=== PATIENT | female | born 1985 | race Caucasian/White ===

== ENCOUNTER 2025-05-25 01:55 | Emergency (ER) | payer OTHER, SELFPAY ==
--- NOTE | ~2025-05-25 | CT_ITS ---
CLINICAL HISTORY: LUQ pain CT abdomen and pelvis without contrast Comparison: None provided Findings: The lung bases are clear. Abdominal solid organs without acute abnormality. However, there is borderline hepatosplenomegaly. Gallbladder nondistended. Adrenal glands are nonenlarged The stomach and bowel loops are nondilated. However, there is thickening of the wall of the body of the stomach, axial image 26, series 2, coronal image 26. There are no focal colonic lesions or pneumatosis. There is no pericolonic inflammation. Moderate amount of stool in the colon. There is a low-lying cecum in the right hemipelvis. Appendix is normal. No free fluid, collections or free air The aorta normal in caliber. No abdominopelvic lymphadenopathy. The bladder is normal. Uterus unremarkable. There are no adnexal lesions. No acute soft tissue or skeletal abnormality in the abdomen or pelvis. Partially seen intact bilateral breast implants. IMPRESSION: Wall thickening involving the body of the stomach, nonspecific, may be related to underdistention versus gastric pathology. Recommend GI consultation. The examination is otherwise unremarkable within limitation of a noncontrast exam. This document has been electronically signed by: Josué Schroeder MD on 05/25/2025 05:30:20
--- NOTE | ~2025-05-25 | XR_ITS ---
CLINICAL HISTORY: L chest pain 1 view chest x-ray Comparison: None provided Findings: No consolidation or effusion. Normal size heart. No acute fracture. IMPRESSION: 1. No acute findings. This document has been electronically signed by: Josué Schroeder MD on 05/25/2025 03:50:35
--- NOTE | 2025-05-25 01:56 | ECG_ITS ---
Test Reason : CHEST PAIN Blood Pressure : */* mmHG Vent. Rate : 90 BPM Atrial Rate : 90 BPM P-R Int : 132 ms QRS Dur : 72 ms QT Int : 364 ms P-R-T Axes : 76 70 56 degrees QTcB Int : 445 ms Normal sinus rhythm Nonspecific ST and T wave abnormality Abnormal ECG When compared with ECG of 24-Feb-2011 23:25, Vent. rate has increased by 37 bpm T wave amplitude has decreased in Lateral leads Referred By: Generic ED Physician Electronically Signed By: RUBY ABDALLA
[2025-05-25 02:03] VITALS: BP 140/85; PULSE 77; RESP 16; TEMP 37.1; O2SAT 100; BMI 19.8
[2025-05-25 02:23] LABS: MANUAL DIFF FLAG NO
[2025-05-25 02:24] LABS: Hematocrit 40.1 % (37.0-47.0); Hemoglobin 13.2 g/dl (12.0-16.0); Imm Gran Abs Auto 0.01 X10*3/uL (0.00-0.03); Imm Gran Pct Auto 0.1 % (0.0-0.4); Lymphocytes Absolute Auto 2.7 X10*3/uL (1.2-4.9); Mean Corpuscular HGB Conc 32.9 g/dl (31.0-35.0); Mean Corpuscular Hemoglobin 29.7 pg (27.0-33.0); Mean Corpuscular Volume 90.3 fL (80.0-98.0); NRBC Abs Auto 0.000 X10*3/uL (0.0-0.012); NRBC Pct Auto 0.0 /100WBC (0.0-0.2); Platelet Count 330 X10*3/uL (160-400); Red Blood Count 4.44 X10*6/uL (4.20-5.50); White Blood Count 6.9 X10*3/uL (4.8-10.8)
[2025-05-25 02:41] LABS: COVID-19 Test Negative (Negative); IDNOW Serial# 55D5AD1C; IDNOW Serial# 58CA691E; Influenza B2 Negative (Negative)
[2025-05-25 02:46] LABS: Alanine Aminotransferase 7 U/L (0-31); Albumin Level 4.1 g/dL (3.5-5.0); Alkaline Phosphatase 62 U/L (39-117); Anion Gap 14 (12-20); Aspartate Amino Transferase 18 U/L (5-31); Blood Urea Nitrogen 11 mg/dL (9-16); Calcium 8.7 mg/dL (8.4-10.2); Carbon Dioxide 21 mmol/L (22-29); Chloride 110 mmol/L (96-108); Creatinine Clr Calc Pharmacy 89.4; Estimated Glomerular Filt Rate > 60; Magnesium 2.0 mg/dL (1.6-2.6); Potassium 3.5 mmol/L (3.3-5.1); Sodium 141 mmol/L (135-145); Total Protein 6.6 g/dL (6.5-8.0)
--- NOTE | 2025-05-25 02:49 | ED_ITS ---
HPI - Chest Pain General Chief Complaint: Chest Pain Stated Complaint: CP Time Seen by Provider: 05/25/25 02:15 Source: patient Mode of arrival: ambulatory Limitations: no limitations History of Present Illness ED Provider: Dr. Evita Talbert HPI narrative: Patient comes to the emergency room complaining of intermittent sharp left-sided chest pain. Patient states that she believes it is radiating from the stomach upwards. However, patient states it feels like a crushing pain intermittently. Patient states that since she got here, she no longer has a abdominal pain or chest pain shortness of breath. Patient states that she feels a bit anxious, denies nausea vomiting diarrhea. Patient denies any recent travel or smoking, patient does take control pills. Related Data Previous Rx's ?Medication ?Instructions ?Recorded famotidine 20 mg tablet (Heartburn 20 mg PO DAILY #30 tabs 05/25/25 Relief (famotidine)) Allergies Allergy/AdvReac Type Severity Reaction Status Date / Time amoxicillin (Amoxicillin) Allergy Unknown UNKNOWN Verified 05/25/25 02:07 Penicillins Allergy Unknown RASH Verified 05/25/25 02:07 Review of Systems 2 Review of Systems: Constitutional : No Weight loss, No Fever, No Chills, No Night Sweats, No Fatigue, No Malaise ENT/Mouth : No Hearing loss, No Ear Pain, No Nasal Congestion, No Sinus Pain, No Hoarseness, No sore throat, No Rhinorrhea, No Swallowing Difficulty Eyes: No Eye Pain, No Swelling, No Redness, No Foreign Body, No Discharge, No Vision Changes Cardiovascular : Complaining of crushing Chest Pain intermittently, radiating from the abdomen upwards., No SOB, No Dyspnea on Exertion, No Orthopnea, No Edema, No Palpitations Respiratory : No Cough, No Sputum, No Wheezing, No Smoke Exposure, No Dyspnea Gastrointestinal : No Nausea, No Vomiting, No Diarrhea, No Constipation, No abdominal Pain, No Hematochezia, No Melena Genitourinary : no irregular bleeding, No Dysuria, No Urinary Frequency, No Hematuria, No Urinary Incontinence, No Urgency, No Flank Pain, No Urinary Flow Changes, No Hesitancy Musculoskeletal : No joint pain, No Myalgias, No Joint Swelling Skin : No Skin Lesions, No rash Neuro : No Weakness, No Numbness, No Paresthesias, No Loss of Consciousness, No Dizziness, No Headache Psych : No Anxiety/Panic, No Depression, No SI/HI/AH/VH, No Social Issues, Heme/Lymph: No Bruising, No Bleeding,No Lymphadenopathy Endocrine : No Polyuria, No Polydipsia, No Temperature Intolerance [facility] Social History Social History Alcohol intake: never Smoked in Last 30 Days: No Use of substances other than those prescribed or required for medical reasons: No Advance Directives: No Advance Directives Information Provided: Yes Do you have a plan to hurt others: No Plan Patient : No Physical Exam 2 Exam: Exam: Appearance: Alert. Oriented X3. No acute distress. Eyes: Pupils equal, round and reactive to light. ENT: Pharynx normal. Neck: Normal inspection. Neck supple. No lymph nodes noted. No crepitus CVS: Normal heart rate and rhythm. Pulses normal. Normal S1 and S2 Respiratory: No respiratory distress. Breath sounds normal. No Wheezing. No rales Abdomen: Soft and nontender. No rigidity. No distention. Skin: Skin warm and dry. Normal skin color. Normal skin turgor. Extremities: No lower extremity edema. No Lacerations. No Rash Neuro: Oriented X 3. No motor deficit. No sensory deficit. Moving all extremities. No slurred speech. CN 2 through 12 grossly intact Psych: calm, cooperative, seems a bit anxious Vital Signs: Vital Signs: Last Vital Signs Temp 98.8 F 05/25/25 02:03 Pulse 77 05/25/25 02:03 Resp 16 05/25/25 02:03 BP 140/85 H 05/25/25 02:03 Pulse Ox 100 05/25/25 02:03 O2 Del Method Room Air 05/25/25 02:03 BMI result Body Mass Index 19.8 Course Course Course Narrative: I patient's triage informed me that the patient arrived crying, anxious, stating that she has left-sided chest pain Medications Administered Discontinued Medications Generic Name Dose Route Start Last Admin Trade Name Freq PRN Reason Stop Dose Admin Famotidine 20 mg 05/25/25 04:19 05/25/25 05:22 Famotidine 20 Mg Tablet PO 05/25/25 04:20 20 mg ONCE ONE Administration No significant abnormality in patient's hematology and chemistry, troponin negative. D-dimer is slightly elevated. Given patient's location of pain, symptoms and elevated D-dimer, we will proceed with a CTA to rule out PE. Medical Decision Making Medical Decision Making [facility] Narrative: My interpretation of EKG: Normal sinus rhythm, heart rate 90, no ST segment depression or elevation, no T-wave inversion, QTC 445 My interpretation of labs: No significant abnormality in patient's hematology or chemistry, D-dimer negative Patient very anxious, tearful , patient reassured multiple times. Patient instructed to follow-up with her primary care physician. Wells criteria score is negative for PE It was discussed with the patient that if she continues having symptoms, she may benefit from a Holter monitor evaluation. Once patient was getting ready to be discharged, patient states that she is mostly having abdominal pain in the left upper quadrant that radiates up to her chest. Patient extremely anxious, tearful Patient requesting that we do an ultrasound of her stomach. I discussed with the patient that an ultrasound of the stomach is not a thing. I discussed with the patient that pain radiating from the left upper quadrant towards the chest might be gastritis/GERD, peptic ulcer disease. The patient was made aware that even with the imaging, whether it is ultrasound or CAT scan, we can not see this conditions. Empiric treatment is indicated and then follow- up with PCP for possible referral to Gastroenterology. If there is no improvement, patient may need an endoscopy. She now more anxious A CT scan has been ordered. And patient was offered a GI cocktail including viscous lidocaine, Maalox and Pepcid. I was offered by the patient's nurse that the patient declined the above- mentioned treatment because it is bad for her teeth . CT scan of the abdomen shows nonspecific wall thickening of the body. I discussed the above-mentioned with the patient, recommended treatment for a least couple of months. If there is no improvement, patient may need the upper endoscopy. Patient understands that she needs to have follow-up with gastroenterology. Patient agrees with plan Patient is less anxious, no longer tearful Differential Diagnosis Differential Diagnoses: The differential diagnosis associated with the presentation includes (Pulmonary embolism, viral illness, gastritis, costochondritis, pleurisy) Admission/Observation Consideration of admission/observation: Escalation of care including admission/observation considered (Given patient's age and symptoms, observation was considered) Lab Data MDM Lab Attestation statement: I reviewed the patient's lab results. 05/25/25 02:16 05/25/25 02:16 Labs: Lab Results 05/25/25 05/25/25 Range/Units 02:16 03:07 WBC 6.9 (4.8-10.8) X10*3/uL RBC 4.44 (4.20-5.50) X10*6/uL Hgb 13.2 (12.0-16.0) g/dl Hct 40.1 (37.0-47.0) % MCV 90.3 (80.0-98.0) fL MCH 29.7 (27.0-33.0) pg MCHC 32.9 (31.0-35.0) g/dl RDW 12.9 (11.0-16.0) % Plt Count 330 (160-400) X10*3/uL MPV 9.3 L (9.4-12.3) fL Immature Gran % (Auto) 0.1 (0.0-0.4) % Neut % (Auto) 45.9 (45-73) % Lymph % (Auto) 39.2 (20-40) % Phillips % (Auto) 11.5 H (2-11) % Eos % (Auto) 2.7 (0-4) % Baso % (Auto) 0.6 (0-2) % Lymph # (Auto) 2.7 (1.2-4.9) X10*3/uL Phillips # (Auto) 0.8 (0.1-1.2) X10*3/uL Eos # (Auto) 0.2 (0.0-0.4) X10*3/uL Baso # (Auto) 0.0 (0.0-0.2) X10*3/uL Abs Immat Gran (auto) 0.01 (0.00-0.03) X10*3/uL Absolute Neuts (auto) 3.2 (2.0-8.3) x10*3/uL Absolute Nucleated RBC 0.000 (0.0-0.012) X10*3/uL Nucleated RBC % (auto) 0.0 (0.0-0.2) /100WBC D-Dimer High Sensitivty 154 NG/ML Sodium 141 (135-145) mmol/L Potassium 3.5 (3.3-5.1) mmol/L Chloride 110 H (96-108) mmol/L Carbon Dioxide 21 L (22-29) mmol/L Anion Gap 14 (12-20) BUN 11 (9-16) mg/dL Creatinine 0.75 (0.5-1.4) mg/dL Estim Creat Clear Calc 89.4 Estimated GFR > 60 Random Glucose 94 (60-115) mg/dL Calcium 8.7 (8.4-10.2) mg/dL Magnesium 2.0 (1.6-2.6) mg/dL Total Bilirubin 0.4 (0.0-1.0) mg/dL AST 18 (5-31) U/L ALT 7 (0-31) U/L Alkaline Phosphatase 62 (39-117) U/L Troponin I High Sens < 2.7 (<3.5-17.0) ng/L Total Protein 6.6 (6.5-8.0) g/dL Albumin 4.1 (3.5-5.0) g/dL Beta HCG, Quant < 2 mIU/mL COVID-19 (AUREA) Negative (Negative) COVID-19 Clin Com See Note Influenza Type A (AMANDA) Negative (Negative) Influenza Type B (AMANDA) Negative (Negative) Influenza A & B Note See Note Independent Interpretation I performed an independent interpretation of an: CT Scan Radiology Impression Discussion of test interpretation with radiology: I have reviewed the radiologist's reading. Radiologist Impression: No consolidation or effusion. Normal size heart. No acute fracture. IMPRESSION: 1. No acute findings. Wall thickening involving the body of the stomach, nonspecific, may be related to underdistention versus gastric pathology. Recommend GI consultation. The examination is otherwise unremarkable within limitation of a noncontrast exam. Scores Heart Score History: -0- slightly suspicious ECG: -0- normal Age: -0- < or = 45 Risk factory: -0- no risk factors known Troponin: -0- < or = normal limit Score: 0 Risk: 1.7% Critical Care Time Critical Care Time Critical Care Time: Yes Total Critical Care Time: 35 Attestation: I have personally provided critical care time. Time includes review of lab data, radiology results, discussion with consultants, and monitoring for potential decompensation. Intervention performed as documented. Discharge Plan Discharge Clinical Impression: Atypical chest pain, Gastritis Patient Disposition: Home, Self-Care Instructions: Chest Pain (ED), Gastritis (ED), Diet for Stomach Ulcers and Gastritis (ED) Additional Instructions: Please follow-up with your primary care physician tomorrow. If you have any worsening or new symptoms, please return to the emergency room or call 911 Prescriptions: New famotidine [Heartburn Relief (famotidine)] 20 mg tablet 20 mg PO DAILY Qty: 30 2RF Print Language: Telugu
[2025-05-25 02:50] LABS: Troponin-I High Sensitivity < 2.7 ng/L (<3.5-17.0)
[2025-05-25 03:12] VITALS: PULSE 67
--- OUTSIDE RECORDS SUMMARY | 2025-05-25 03:13 | XMS_ITS | Encounter Summary ---
Author Organization [facility] Address [address] [place] [address] Care Team Providers Care Director Of Dementia Operations Name Role Phone Ilan Agarwal MD Primary Care Provider [phone] Encounter Details Date Type Department Care Team ([facility] st Contact Info) Description 05/01/2025 Results Follow-Up Endocrinology - [address] [id number] Justin Roman MD [address] [place] [address] Social History Tobacco Use Types Packs/Day Years Used Date Smoking Tobacco: Former Cigarettes Q uit: 07/26/2009 Smokeless Tobacco: Never Alcohol Use Standard Drinks/Week Comments Yes 0 (1 standard drink = 0.6 oz pur e alcohol) Housing Instability Answer Date Recorde d Are you worried that in the next 2 months you may not have stable housing? No 06/19/2024 Food Access & Nutrition Answer Date Rec orded Do you have access to a vari ety of food including fruits and vegetables? Yes 06/19/2024 Access to Healthcare Answer Date Record ed Within the last 3 months, ho w many times did you visit the emergency department for your medical care? 0 06/19/2024 Health Literacy Answer Date Recorded How often do you need to hav e someone help you when you read instructions, pamphlets, or other written material from your doctor or pharmacy? Never 06/19/2024 Caregiver: How often do you need to have someone help you when you read instructions, pamphlets, or other written material from your doctor or pharmacy? Not on file 06/19/2024 Financial Risk Answer Date Recorded How hard is it for you to pa y for the very basics like food, housing, medical care, and air conditioning / heating? Not very hard 06/19/2024 Transportation Answer Date Recorded Has the lack of transportati on kept you from meetings, work, or from getting things needed for daily living? No Has the lack of transportati on kept you from medical appointments or from getting medications? No 06/19/2024 Social Isolation Answer Date Recorded How often do you feel lonely or isolated from th ose around you? Never 06/19/2024 Food Risk Answer Date Recorded Within the past 12 months we worried whether our food would run out before we got money to buy more. Never true 06/19/2024 Within the past 12 months th e food we bought just didn't last and we didn't have money to get more. Never true 06/19/2024 Dependent Care Answer Date Recorded Do you need help finding or paying for care for your loved ones. For example, children's choir director or elderly care for an older adult? No 06/19/2024 Education Answer Date Recorded Do you think completing more education or training, like finishing a GED, going to college, or learning a trade, would be helpful for you? No 06/19/2024 Employment and Income Answer Date Recor ded During the last four weeks, have you been actively looking for work? No 06/19/2024 Living Situation Answer Date Recorded What is your living situation? Unrecognized valu e 06/19/2024 Comments No Sex and Gender Information Value Date Recorded Sex Assigned at Not on file Legal Sex Female 9:48 PM EST Gender Identity Not on file Sexual Orientation Not on file documented as of this encounter Plan of Treatment Upcoming Encounters Date Type Department Care Team (Late st Contact Info) Description 08/02/2025 10:00 AM EST Office Visit Adult Medicine [address] [phone] Ilan Agarwal MD [address] [place] [address] 10/11/2025 1:45 PM EDT Appointment Radiology Department - [address] [phone] documented as of this encounter Visit Diagnoses Not on filedocumented in this encounter Additional Health Concerns Assessment Noted Time PHQ-9 Depression Total Score: 0 03/28/20 8:36 PM EDT documented as of this encounter Care Teams Director Of Dementia Operations Relationship Specialty Start Date End Date Ilan Agarwal MD [address] [place] [address] PCP - General Internal Medicine 02/01/25 documented as of this encounter
--- OUTSIDE RECORDS SUMMARY | 2025-05-25 03:13 | XMS_ITS | Clinical Summary ---
Author Organization [facility] [address] [place] [address] [place] [phone] Phone Care Team Providers Care Workforce Management Consultant Name Role Phone Ilan Agarwal MD Primary Care Provider Allergies Active Allergy Reactions Criticality Noted Date Comments Penicillins Rash,Wheezing 01/08/2010 Medications cyanocobalamin (VITAMIN B-12) 1,000 mcg tablet Take 1 tablet (1,000 mcg total) by mouth 1 (one) time each day. 11/29/2023 Active norethindrone-e thinyl estradiol (JUNEL 08/14) 1 mg-20 mcg (21)/75 mg (7) per tablet Take 1 tablet by mouth 1 (one) time each day. Take active pills only for 3 months-skip placebos for 2 packs. Then repeat 28 tablet 14 04/20/2025 04/19/20 26 Active Active Problems Problem Noted Date Diagnosed Date Palpitation 01/09/2025 Right ovarian cyst 10/27/2019 Overview (06/20/2024): Small complex, Probably hemorrhagic. Measuring 2.2 x 1.2 x 1.8 Will repeat US in 6 weeks. Results: Date: Cervical lymphadenopathy 12/07/2018 Hoarseness 11/30/2018 Bleeding external hemorrhoids 10/24/2012 IBS (irritable bowel syndrome) 04/13/2011 Anxiety 03/31/2011 Chest pain 10/29/2010 Assessment & Plan (01/10/2025 10:09 AM EDT): 2 out of 5 risk factors for coronary disease is scheduled for stress echo also for the palpitations. Pain is more typical for GI but given a female and atypical symptoms we need to ensure that there is no ischemic disease Orders: Stress echocardiogram (TTE) exercise with PRN contrast, bubble, strain, and 3D order panel; Future Cardiac holter monitor (<= 48 hours); Future Encounters Date Type Department Care Team Description 05/01/2025 Results Follow-Up Endocrinology - [address] [phone] Justin Roman MD 04/19/2025 12:30 PM EDT - 04/19/2025 11:59 PM EDT Hospital Encounter Radiology Department - [address] [phone] Thyroid nodule Discharge Disposition: Home or Self Care 04/05/2025 12:25 PM EDT - 04/05/2025 11:59 PM EDT Hospital Encounter Radiology Department - [address] [phone] Abnormal mammogram Discharge Disposition: Home or Self Care 04/02/2025 4:00 PM EDT Office Visit Obstetrics and Gynecology - [address] [phone] Mary Kate Chapman, SETH Cyst of right breast (Primary Dx) from Last 3 Months Immunizations Immunization Administration Dates Next Due PPD Test 09/25/2015,09/20/2014,03/27/2011 Tdap Tetanus diptheria acell ular pertussis (Boostrix; Adacel) 7yo and older 09/20/2014 Surgical History Surgery Date Site/Laterality Comments FLEXIBLE SIGMOIDOSCOPY 03/2011 PROCEDURE: AL SIGMOIDOSCOPY FLX DX W/COLLJ SPEC BR/WA IF PFRMD OTHER SURGICAL HISTORY PROCEDURE: HISTORICAL UNSPECIFIED SURGERY; COMMENT: mammoplasty OTHER SURGICAL HISTORY Bilateral PROCEDURE: IMPLANT BREAST SILICONE/EQ; COMMENT: 2012 Medical History Medical History Date Comments Chest pain DX:Chest pain Troy's thyroiditis DX:Rosy gonzalo's thyroiditis B12 deficiency DX:B12 deficienc y Family History Medical History Relation Name Comments Hyperlipidemia Father Breast cancer Father's side paternal gr g rmtr at age 20's Coronary artery disease Paternal Grandfather Colon cancer Neg Hx Diabetes Neg Hx Ovarian cancer Neg Hx Pancreatic cancer Neg Hx Prostate cancer Neg Hx Uterine cancer Neg Hx Relation Name Status Comments Father Alive Hyperchol, hype rtension, cad Father's side Mother Alive Paternal Grandfather SC @ 40 yrs, CAD Social History Tobacco Use Types Packs/Day Years Used Date Smoking Tobacco: Former Cigarettes Q uit: 07/26/2009 Smokeless Tobacco: Never Tobacco Cessation:Counseling Given: Not Answered Alcohol Use Standard Drinks/Week Comments Yes 0 [...] ed Within the last 3 months, ho rey many times did you visit the emergency [...] care for your loved ones. For example, early childhood director or elderly care for an older [...] on file Sexual Orientation Not on file Obstetrics History Para Term AB IAB SAB Ectopic Multiple Livin g Live Births 2 2 2 2 2 Date Outcome GA Total Labor Labor/2nd/3rd Weight Sex Type Anes PTL Laura A1 A5 Name Clin 005 Term M Vag-S pont Living 012 Term M Vag-S pont Living Comments:System Genera hillary. Please review and update details. Last Filed Vital Signs Vital Sign Reading Time Taken Comments Blood Pressure 127/83 04/02/2025 3:56 PM EDT Pulse 91 04/02/2025 3:56 PM EDT Temperature 35.7 C (96.3 F) 12/04/2024 4:41 PM EDT Respiratory Rate 15 02/13/2025 3:37 PM EDT Oxygen Saturation 99% 01/10/2025 9:04 AM EDT Inhaled Oxygen Concentration - - Weight 56.7 kg (125 lb) 04/02/2025 3:56 PM EDT Height 167.6 cm (5' 6 ) 02/01/2025 9:22 AM EDT Body Mass Index 20.18 02/01/2025 9:22 AM EDT Plan of Treatment Upcoming Encounters Date Type Department Care Team (Late st Contact Info) Description 08/02/2025 10:00 AM EST Office Visit Adult Medicine [address] [phone] Ilan Agarwal MD [address] [place] [address] 10/11/2025 1:45 PM EDT Appointment Radiology Department - [address] [phone] Health Maintenance Due Date Last Done Comments Hepatitis B Vaccines (1 of 3 - 19+ 3-dose series) 2005 HPV Vaccines (1 - 3-dose SCDM series) 2013 DTaP,Tdap,and Td Vaccines (2 - Td or Tdap) 09/20/2024 09/20/2014 COVID-19 Vaccine ( - season) 2025 Influenza Vaccine (#1) 2025 Social Influencers of Health Screening 06/19/2025 06/19/2024 Cervical Cancer Screening: HPV 04/07/2029 04/07/2024 Cholesterol Screening (Lipid Panel) 09/27/2029 09/27/2024, 03/08/2024, 03/08/2024, Additional history exists RSV Immunization Adult Patients (1 - 1-dose 75+ series) 2061 HIV Screening Completed 04/07/2023 Hepatitis C Screening Completed 04/07/2023 Depression Screening Completed 03/28/2025 HIB Vaccines Aged Out No longer eligi ble based on patient's age to complete this topic Hepatitis A Vaccines Aged Out No long er eligible based on patient's age to complete this topic IPV Vaccines Aged Out No longer eligi ble based on patient's age to complete this topic MMR Vaccines Aged Out No longer eligi ble based on patient's age to complete this topic Meningococcal ACWY Vaccine Aged Out N o longer eligible based on patient's age to complete this topic Meningococcal B Vaccine Aged Out No l onger eligible based on patient's age to complete this topic Pneumococcal Vaccine: Pediatrics (0 to 5 Years) and At-Risk Patients (6 to 49 Years) Aged Out No longer eligible based on patient's age to complete this topic RSV Immunization Patients Under 20 months Aged Out No longer eligible based on patient's age to complete this topic Varicella Vaccines Aged Out No longer eligible based on patient's age to complete this topic Procedures Procedure Name Priority Date/Time Associated Diagnosis Comments US HEAD NECK SOFT TISSUE Routine 04/19/2025 1:18 PM EDT Thyroid nodule US GUIDED FINE NDL ASP BREAST 1ST LESION Routine 04/05/2025 1:26 PM EDT Abnormal mammogram LIPID PANEL WITH REFLEX TO DIRECT LDL Routine 09/27/2024 9:53 AM EST Troy's thyroiditis B12 deficiency Mixed hyperlipidemia Cervical lymphadenopathy Other fatigue Palpitations Blurred vision, left eye Left facial numbness HPV Routine 04/07/2024 HEPATITIS C SCREENING Routine 04/07/2023 HIV SCREENING Routine 04/07/2023 from Last 3 Months or Most Recently Relevant to Health Maintenance Results * US Head Neck Soft Tissue (04/19/2025 1:18 PM EDT) Anatomical Region Laterality Modality Head and Neck Ultrasound 04/19/2025 5:15 PM EDT Narrative 04/19/2025 5:19 PM EDT Thyroid ultrasound. History follow-up on nodule. Lumps. Examination of the areas of the palpable abnormalities indicated by the patient corresponds to 0.7 x 0.2 x 0.6 cm morphologically normal submental lymph nodes as well as some morphologically normal lymph node in the right submandibular area measuring 0.7 x 0.4 x 0.8 cm. Thyroid gland is heterogeneous in echotexture with some normal flow on color Doppler examination. Right thyroid lobe measures 5.6 x 1.5 x 1.5 cm. No focal abnormalities identified in the right thyroid lobe. Left thyroid lobe measures 5.3 x 1.5 x 1.5 cm. There is a tiny calcified nodule measuring 0.1 x 0.1 x 0.1 cm, previously 0.2 x 0.1 x 0.2 cm. Isthmus measures 3 mm. CONCLUSIONS: Heterogeneous in echotexture thyroid gland without suspicious thyroid nodules. Palpable abnormality indicated by the patient corresponds to morphologically normal small submental and right submandibular lymph nodes. -------- FINAL REPORT -------- Dictated By: Zaria Chan Dictated Date: 04/19/2025 17:15 ET Assigned Physician: Zaria Chan Reviewed and Electronically Signed By: Zaria Chan Signed Date: 04/19/2025 17:19 ET Workstation ID: [id number] Transcribed By: Self Edit Transcribed Date: 04/19/2025 17:15 ET Procedure Note Zaria Chan MD - 04/19/2025 Thyroid ultrasound. History follow-up on nodule. Lumps. Examination of the areas of the palpable abnormalities indicated by thepatient corresponds to 0.7 x 0.2 x 0.6 cm morphologically normal submentallymph nodes as well as some morphologically normal lymph node in the rightsubmandibular area measuring 0.7 x 0.4 x 0.8 cm. Thyroid gland is heterogeneous in echotexture with some normal flow oncolor Doppler examination. Right thyroid lobe measures 5.6 x 1.5 x 1.5 cm. No focal abnormalitiesidentified in the right thyroid lobe. Left thyroid lobe measures 5.3 x 1.5 x 1.5 cm. There is a tiny calcifiednodule measuring 0.1 x 0.1 x 0.1 cm, previously 0.2 x 0.1 x 0.2 cm.Isthmus measures 3 mm. CONCLUSIONS: Heterogeneous in echotexture thyroid gland without suspiciousthyroid nodules. Palpable abnormality indicated by the patient correspondsto morphologically normal small submental and right submandibular lymphnodes. -------- FINAL REPORT -------- Dictated By: Zaria Chan Dictated Date: 04/19/2025 17:15 ET Assigned Physician: Zaria Chan Reviewed and Electronically Signed By: Zaria Chan Signed Date: 04/19/2025 17:19 ET Workstation ID: [id number] Transcribed By: Self Edit Transcribed Date: 04/19/2025 17:15 ET us Justin Roman MD IMG US PROCEDURES Final Result * US Guided Fine Ndl Asp Breast 1st Lesion (04/05/2025 1:26 PM EDT) Anatomical Region Laterality Modality Breast Ultrasound 04/09/2025 7:31 AM EDT Impressions 04/09/2025 7:40 AM EDT Ultrasound-guided core biopsy of the right breast was not performed. Six-month follow-up right breast ultrasound has been scheduled. RECOMMENDATION: Ultrasound of the right breast is recommended in 6 months. -------- FINAL REPORT -------- Dictated By: Joanna Davis Dictated Date: 04/09/2025 07:31 ET Assigned Physician: Joanna Davis Reviewed and Electronically Signed By: Joanna Davis Signed Date: 04/09/2025 07:40 ET Workstation ID: [id number] Transcribed By: Self Edit Transcribed Date: 04/09/2025 07:31 ET Narrative 04/09/2025 7:40 AM EDT ULTRASOUND-GUIDED BREAST CORE NEEDLE BIOPSY-Aborted Procedure CLINICAL: 39 years old, Female, referred for ultrasound right breast biopsy for cluster of cysts measuring 0.8 x 0.4 x 0.6 cm and located at the 10 o'clock position 4 cm from the nipple. Patient has implants. COMPARISON: Bilateral mammogram and right breast ultrasound 02/19/2025. PROCEDURE: Informed consent was obtained. Preliminary sonographic imaging of the upper outer right breast confirms the presence multiseptated cystic nodule at the 10 o'clock position 4 cm from the nipple. Potential complications including infection, bleeding, and implant rupture were discussed with the patient. The patient decided to cancel the biopsy because of the risk of damage to her implant. Six-month follow-up right breast ultrasound was scheduled. Since the lesion is palpable, the patient was advised to call radiology Department if the lesion enlarges in the interim. Procedure Note Joanna Davis MD - 04/09/2025 ULTRASOUND-GUIDED BREAST CORE NEEDLE BIOPSY-Aborted Procedure CLINICAL: 39 years old, Female, referred for ultrasound right breastbiopsy for cluster of cysts measuring 0.8 x 0.4 x 0.6 cm and located atthe 10 o'clock position 4 cm from the nipple. Patient has implants. COMPARISON: Bilateral mammogram and right breast ultrasound 02/19/2025. PROCEDURE: Informed consent was obtained. Preliminary sonographic imaging of theupper outer right breast confirms the presence multiseptated cystic noduleat the 10 o'clock position 4 cm from the nipple. Potential complications including infection, bleeding, and implant rupturewere discussed with the patient. The patient decided to cancel the biopsy because of the risk of damage toher implant. Six-month follow-up right breast ultrasound was scheduled. Since thelesion is palpable, the patient was advised to call radiology Departmentif the lesion enlarges in the interim. IMPRESSION: Ultrasound-guided core biopsy of the right breast was not performed.Six-month follow-up right breast ultrasound has been scheduled. RECOMMENDATION: Ultrasound of the right breast is recommended in 6 months. -------- FINAL REPORT -------- Dictated By: Joanna Davis Dictated Date: 04/09/2025 07:31 ET Assigned Physician: Joanna Davis Reviewed and Electronically Signed By: Joanna Davis Signed Date: 04/09/2025 07:40 ET Workstation ID: [id number] Transcribed By: Self Edit Transcribed Date: 04/09/2025 07:31 ET us [place] [facility] IMG US PROCEDURES Final Resu lt * (ABNORMAL) Lipid panel with reflex to direct LDL (09/27/2024 9:53 AM EST) Cholesterol 263(H) 0 - 200 mg/dL LAB CHEMISTRY METHOD 09/27/2024 3:34 PM [facility] Triglycerides 146 0 - 150 mg/dL LAB CHEMISTRY METHOD 09/27/2024 3:34 PM EST [facility] HDL 56 >=40 mg/dL LAB CHEMISTRY METHOD 09/27/2024 3:34 PM [facility] LDL Calculated 178(H) 0 - 100 mg/dL LAB CHEMISTRY METHOD 09/27/2024 3:34 PM [facility] VLDL Cholesterol Bob 29.2 mg/dL LAB CHEMISTRY METHOD 09/27/2024 3:34 PM [facility] Non HDL Chol. (LDL+VLDL) 207(H) <145 mg/dL LAB CHEMISTRY METHOD 09/27/2024 3:34 PM EST [facility] Chol/HDL Ratio 4.7(H) 0.0 - 4.4 LAB CHEMISTRY METHOD 09/27/2024 3:34 PM EST [facility] Blood Venous blood specimen / Unknown Venipuncture / Unknown 09/27/2024 9:53 AM EST 09/27/2024 9:53 AM EST Ilan Agarwal MD LAB BLOOD ORDERABLES Final Result [facility] [address] [place] [address], [place] [phone] * Cervical Cancer Screening: HPV (04/07/2024) [facility] Cervical Cancer Screening: HPV negative, abstracted Historical Provider HEALTH MAINTENANCE Final Result * HIV Screening (04/07/2023) [facility] HIV Screening abstracted Historical Provider HEALTH MAINTENANCE Final Result * Hepatitis C Screening (04/07/2023) [facility] Hepatitis C Screening abstracted Historical Provider HEALTH MAINTENANCE Final Result from Last 3 Months or Most Recently Relevant to Health Maintenance Insurance [facility] Care Teams Workforce Management Consultant Relationship Specialty Start Date End Date Ilan Agarwal MD [address] [place] [phone] PCP - General Internal Medicine 02/01/25
--- OUTSIDE RECORDS SUMMARY | 2025-05-25 03:13 | XMS_ITS ---
Author Name [facility] Organization Unknown Care Team Organization Name Specialty Phone Email Start Date End Da te [facility] Ilan Agarwal Primary Care 01/01/202302/23 [facility] Shelby Moore Primary Care 06/02/20222023 [facility] ([facility])
--- OUTSIDE RECORDS SUMMARY | 2025-05-25 03:13 | XMS_ITS | Clinical Summary ---
Author Organization [facility] Address [address] [place] [phone] Phone Care Team Providers Care Laborer Name Role Phone Ilan Agarwal MD Primary Care Provider Allergies Active Allergy Reactions Criticality Noted Date Comments Amoxicillin 05/15/2021 Penicillins 05/15/2021 Medications valACYclovir (VALTREX) 1000 MG tablet Take 1,000 mg by mouth 2 (two) times a day. Active gabapentin (NEURONTIN) 300 MG capsule Take 1 capsule (300 mg total) by mouth 2 (two) times a day for 1 day, THEN 1 capsule (300 mg total) 3 (three) times a day for 3 days. 11 capsule 05/15/2021 Active oxyCODONE-aceta minophen (PERCOCET) 5-325 mg per tablet Take 1 tablet by mouth every 4 (four) hours as needed for pain (specific location in comments). Can partial fill 12 tablet 05/15/2021 Active Active Problems No known active problems Social History Tobacco Use Types Packs/Day Years Used Date Smoking Tobacco: Never Assessed Education Answer Date Recorded Are you interested in more education? Not on javier e 11/20/2022 Are you concerned about learning? Not on file 11/20/2022 No 11/20/2022 No 11/20/2022 Digital Access Answer Date Recorded No 12/21/2022 No 12/21/2022 Reliable internet access at home? Not on file 12/21/2022 Device with a working camera? Not on file Comments Unknown Sex and Gender Information Value Date Recorded Sex Assigned at Female 05/15/2021 9:38 PM EDT Legal Sex Female 9:11 PM EDT Gender Identity Female 05/15/2021 9:38 PM EDT Sexual Orientation Not on file Last Filed Vital Signs Vital Sign Reading Time Taken Comments Blood Pressure 138/102 05/15/2021 9:36 PM EDT Pulse 95 05/15/2021 9:36 PM EDT Temperature 36.6 C (97.9 F) 05/15/2021 9:36 PM EDT Respiratory Rate 18 05/15/2021 9:36 PM EDT Oxygen Saturation 99% 05/15/2021 9:36 PM EDT Inhaled Oxygen Concentration - - Weight - - Height - - Body Mass Index - - Plan of Treatment Upcoming Encounters Date Type Department Care Team (Late st Contact Info) Description 06/06/2025 9:00 AM EST Office Visit [facility] Rheumatology [address] [place] [address] Bebe Miguel MD [address] [place] [address], [address] [place] [address] [email or web address] Health Maintenance Due Date Last Done Comments DEPRESSION SCREENING 1998 SMOKING Hx and SMOKELESS TOB ACCO SCREENING 10/10/1999 HEPATITIS C SCREENING 2004 HIV ONE-TIME SCREENING (18-6 5 YEARS) 2004 PAP SMEAR 10/10/2007 Adult Td,Tdap Booster 09/20/2024 09/20/2014 INFLUENZA VACCINE (#1) 2025 COVID-19 VACCINE (1 - 2024-2 6 season) 2025 HEPATITIS A VACCINES Aged Out No long er eligible based on patient's age to complete this topic HIB VACCINES Aged Out No longer eligi ble based on patient's age to complete this topic MENINGOCOCCAL VACCINES (ACWY) Aged Out No longer eligible based on patient's age to complete this topic MENINGOCOCCAL VACCINES (B) Aged Out N o longer eligible based on patient's age to complete this topic PNEUMOCOCCAL VACCINES (0-49 years) Aged Out No longer eligible based on patient's age to complete this topic Medical Devices Not on file Insurance [employer] NON NSPG PCP [employer] [place] NON NSPG PCP [employer] [place] NON NSPG PCP SILVER CLARITY CONNECTORCARE [employer] NON NSPG PCP SILVER CLARITY CONNECTORCARE WE[employer] NON NSPG PCP SILVER CLARITY CONNECTORCARE [employer] NON NSPG PCP SILVER [employer]ARITY CONNECTORCARE Care Teams Laborer Relationship Specialty Start Date End Date Ilan Agarwal MD [address] [place] [id number] PCP - General Internal Medicine 12/06/24 Additional Source Comments The information contained in this document represents components of the legal health record. It is not the complete legal health record.[facility]
[2025-05-25 03:20] LABS: D Dimer High Sensitivity 154 NG/ML
[2025-05-25 05:58] VITALS: BP 132/88; PULSE 66; RESP 18; TEMP 36.9; O2SAT 99
== END 2025-05-25 05:59 | disposition home or self-care (01) ==
PROVIDERS: Emergency Provider Emergency Medicine; PCP Internal Medicine
DX: R07.89 Other chest pain (principal); K29.70 Gastritis, unspecified, without bleeding; Z03.818 Encounter for observation for suspected exposure to other biological agents ruled out; Z79.899 Other long term (current) drug therapy
CPT/HCPCS: 36415; 71045; 74176; 80053; 83735; 84484; 84702; 85025; 85379; 87502; 87635; 93005; 99284; 99285

== ENCOUNTER → 2025-05-25 01:56 | Outpatient (BNV) | payer OTHER, SELFPAY | PROVIDERS: Emergency Provider Emergency Medicine; PCP Internal Medicine; Visit Provider Internal Medicine | DX: R94.31 Abnormal electrocardiogram [ECG] [EKG] (principal); R07.9 Chest pain, unspecified | CPT/HCPCS: 93010 ==

== ENCOUNTER → 2025-05-25 02:32 | Outpatient (BNV) | payer OTHER, SELFPAY | PROVIDERS: Emergency Provider Emergency Medicine; PCP Internal Medicine; Visit Provider Radiology Diagnostic Radiology | DX: K31.89 Other diseases of stomach and duodenum (principal); R07.89 Other chest pain | CPT/HCPCS: 71045; 74176 ==